=== PATIENT | female | born 1995 | race Hispanic/Latino ===

== ENCOUNTER → 2018-11-02 | Outpatient (CLI) | payer OTHER ==
[2018-11-02 13:37] LABS: APPEARANCE,URINE CLEAR (CLEAR); BILIRUBIN,URINE NEGATIVE (NEGATIVE); COLOR,URINE YELLOW (YELLOW); GLUCOSE, URINE (UA) NEGATIVE (NEGATIVE); KETONES,URINE >=80 mg/dL (NEGATIVE); LEUKOCYTE ESTERASE ,URINE TRACE (NEGATIVE); NITRATE,URINE NEGATIVE (NEGATIVE); OCCULT BLOOD,URINE NEGATIVE (NEGATIVE); PH,URINE 6.5 (5.0-8.0); PROTEIN,URINE NEGATIVE (NEGATIVE); UROBILINOGEN,URINE 0.2 mg/dL (0.2-1.0)
[2018-11-02 13:42] LABS: BASOPHILS % (AUTO) 0.2 % (0.0-5.0); EOSINOPHILS % (AUTO) 0.5 % (0.0-8.0); HEMATOCRIT 42.3 % (36-48); LYMPHOCYTES % (AUTO) 3.9 % (21.0-51.0); MEAN CORPUSCULAR HEMOGLOBIN 31.2 pg (27.0-33.0); MEAN CORPUSCULAR HGB CONC 33.3 g/dL (32.0-36.0); MEAN CORPUSCULAR VOLUME 93.7 fL (79-99); NEUTROPHILS % (AUTO) 92.4 % (40.0-77.0); PLATELET COUNT (AUTO) 231 K/uL (130-400); RED BLOOD CELL COUNT(AUTO) 4.51 MIL/uL (4.00-5.50); RED CELL DISTRIBUTION WIDTH 13.7 % (11.0-15.5); WHITE BLOOD COUNT (AUTO) 7.6 K/uL (4.8-10.8)
[2018-11-02 13:45] LABS: BACTERIA,URINE Rare /HPF (None Seen); RBC,URINE 0-1 /HPF (0-1); SQUAMOUS EPITHELIAL CELL,UR Rare /HPF (0-2); WBC,URINE 0-1 /HPF (0-1)
[2018-11-02 14:02] LABS: ALBUMIN 4.4 g/dL (3.5-5.0); BILIRUBIN,DIRECT 0.2 mg/dL (0.0-0.3); CREATININE 0.7 mg/dL (0.5-1.5); PHOSPHORUS 3.3 mg/dL (2.5-4.9); POTASSIUM 3.9 mmol/L (3.5-5.1); TOTAL PROTEIN, SERUM 8.4 g/dL (6.0-8.3)
[2018-11-03 06:49] LABS: RAPID PLASMA REAGIN NONREACTIVE (NONREACTIVE)
[2018-11-03 08:24] LABS: HEPATITIS A ANTIBODY IGM Negative (Negative); HEPATITIS B CORE IGM Negative (Negative); HEPATITIS Bs ANTIGEN SCREEN P Negative (Negative)
[2018-11-04 20:07] LABS: HERPES SIMPLEX VIRUS-1 BY PCR Negative (Negative); HERPES SIMPLEX VIRUS-2 BY PCR Negative (Negative)
== END | disposition home or self-care (01) ==
LOC: LAB 12:12
PROVIDERS: ATTEND Family Medicine
DX: Z11.3 Encounter for screening for infections with a predominantly sexual mode of transmission (principal)
CPT/HCPCS: 36415; 80053; 80061; 80069; 80074; 80076; 81001; 84443; 85025; 86592; 86701; 87390; 87486; 87529; 87797

== ENCOUNTER 2019-04-10 09:43 | Day surgery (SDC) | payer OTHER ==
[2019-04-09 11:24] VITALS: BP 107/68
[2019-04-09 11:26] LABS: BASOPHILS % (AUTO) 0.4 % (0.0-5.0); EOSINOPHILS % (AUTO) 1.4 % (0.0-8.0); HEMATOCRIT 37.4 % (36-48); LYMPHOCYTES % (AUTO) 26.8 % (21.0-51.0); MEAN CORPUSCULAR HEMOGLOBIN 31.6 pg (27.0-33.0); MEAN CORPUSCULAR HGB CONC 33.4 g/dL (32.0-36.0); MEAN CORPUSCULAR VOLUME 94.3 fL (79-99); NEUTROPHILS % (AUTO) 63.4 % (40.0-77.0); PLATELET COUNT (AUTO) 309 K/uL (130-400); RED BLOOD CELL COUNT(AUTO) 3.97 MIL/uL (4.00-5.50); RED CELL DISTRIBUTION WIDTH 12.7 % (11.0-15.5); WHITE BLOOD COUNT (AUTO) 6.3 K/uL (4.8-10.8)
[~2019-04-10] VITALS: Ht 157.5 cm; Wt 61.7 kg
[~2019-04-10 09:43] MED LIST: CEFAZOLIN SODIUM 1 GM VIAL IVP SCH; PNV1TABL90 PO
[2019-04-10 10:15] VITALS: BP 99/64
[2019-04-10] MEDS ORDERED: LACTATED RINGERS 1000ML 1,000 ML IV ONE (10:23)
--- NOTE | 2019-04-10 10:49 | NUR ---
ANXIOUS pt states is very nervous .explained to pt everything we are doing now is routine to prepare u for the procedure., Rick carlisle aromatab applied to pts ahmet hall the lights Addendum: 04/10/19 at 1055 by LANA RODRÍGUEZ RN RN Amended: Links added.
[2019-04-10] MEDS ORDERED: LIDOCAINE PF 2% 5ML ABBOJECT ONE (11:50)
[2019-04-10] MEDS ORDERED: FENTANYL CITRATE PF 50 MCG/1 ML 2ML VIAL ONE (11:51)
[2019-04-10] MEDS ORDERED: PROPOFOL 10 MG/ML 20ML VIAL IV ONE (11:51)
[2019-04-10] MEDS ORDERED: OXYTOCIN 10 USP UNITS/ML ONE (14:44)
[2019-04-10] MEDS ORDERED: GLYCOPYRROLATE 1 MG/5 ML SYRINGE ONE (14:45)
[2019-04-10] MEDS ORDERED: ONDANSETRON HCL 4 MG/2 ML VIAL ONE (14:52)
[2019-04-10 16:30] VITALS: BP 86/50
[2019-04-10 16:45] VITALS: BP 90/54
[2019-04-10 17:00] VITALS: BP 90/52
--- NOTE | 2019-04-10 17:35 | NUR ---
PT AAOX3, NO C/O PAIN. KENNETH PAD HAS SCANT AMOUNT OF BLEEDING. PT STABLE NO DISTRESS, RESTING IN BED, COMFORTABLE. AT BEDSIDE FOR DISCHARGE,INSTRUCTIONS. PT ABLE TO TOLERATE FLUIDS, ABLE TO AMBULATE TO RESTROOM AND VOIDED WITH EASE. PT CHANGED AT BEDSIDE WITH NO ASSISTANCE. PT PLACED IN WHEELCHAIR AND DRIVEN HOME BY FAMILY.
== END 2019-04-10 17:35 | disposition home or self-care (01) ==
LOC: DAH 09:43
PROVIDERS: ATTEND Obstetrics & Gynecology
DX: O03.4 Incomplete spontaneous abortion without complication (principal)
CPT/HCPCS: 36415; 59812; 85025; 86850; 86900; 86901; 88305; A4606; J2001; J2405; J2590; J2704; J3010; J3490; J7120 ×2